=== PATIENT | male | born 1960 | race Caucasian/White ===

== ENCOUNTER 2019-08-16 08:06 | Outpatient (RCR) | payer OTHER ==
[~2019-08-16] VITALS: Ht 177.8 cm; Wt 129.5 kg
[~2019-08-16 08:06] MED LIST: AMLO5TAB9 PO; ASPI-586 PO; ATOR20TA66 PO; LEVO25TA5 PO; LOSA100T57 PO; METF-865 PO; OMEP20TA7 PO; TMSL.4C PO
== END 2019-08-16 14:04 | disposition home or self-care (01) ==
LOC: PREOP 08:06
PROVIDERS: ATTEND Urology
DX: Z01.812 Encounter for preprocedural laboratory examination (principal); Z20.828 Contact with and (suspected) exposure to other viral communicable diseases; N40.0 Benign prostatic hyperplasia without lower urinary tract symptoms; R33.9 Retention of urine, unspecified
CPT/HCPCS: 87635

== ENCOUNTER 2019-08-21 06:05 | Day surgery (SDC) | payer OTHER ==
[~2019-08-21] VITALS: Ht 177.8 cm; Wt 129.5 kg
[2019-08-21] VITALS (11 sets, daily range): BP systolic 131–160; BP diastolic 66–90
--- OUTSIDE RECORDS SUMMARY | 2019-08-21 06:10 | XMS REPORT | Clinical Summary ---
Author Author Admin, Eleazar Casiano Organization [facility] Address Unknown Phone Unavailable Allergies, Adverse Reactions, Alerts Allergy Name Reaction Description Start Date Severity Status Pr ovider NKA Critical Active Jesus Manuel agudelo MD Conditions or Problems Problem Name Problem Code Onset Date Status Entry Date Provider Comment Standard Description Annotate Umbilical hernia without obstruction or gangrene 6 Active Jesus Manuel Valencia MD Umbilical hernia without men tion of obstruction or gangrene Ventral hernia 553.20 Active Jesus Manuel Valencia MD Unspecified ventral hernia without mention of obstruction or gangrene Medication List Medication Instructions Start Date Stop Date Generic Name NDC Status Provider Patient Instruction COZAAR 50 MG ORAL TABS 1 tab daily LOSARTAN POTAS SIUM 03587444725 Active Destinee Blanc RN Active OMEPRAZOLE 20 MG ORAL CPDR 1 tab daily OMEPRAZOLE 09183080938 Active Destinee Blanc RN Active Advance Directives Directive Description Start Date PERMISSION TO SHARE Vital Signs Date Name Value Unit Range Description blood pressure, diastolic 90 mm[Hg] BP arciniega blood pressure, systolic 150 mm[Hg] BP sys height E&M 69 [in_us] Bdy height pulse rate E&M 74 /min Heart rate temperature E&M 98.8 [degF] Body temp erature weight E&M 305 [lb_av] Weight Measure d Encounters Code Encounter Date Provider Facility CPT-12011 Level 4 New Patient 13:26:59 CDT Jesus Manuel Valencia MD [facility]
--- OUTSIDE RECORDS SUMMARY | 2019-08-21 06:10 | XMS REPORT ---
Author Author Eleazar Tenorio Organization [facility] Address [address] [place], [place] [id number] Care Team Providers Care Direct Support Professional Name Role Phone Isaiah Tenorio PCP Isaiah Tenorio PreferredProvider Allergies and Adverse Reactions Name Reaction Notes No known drug allergy Plan of Treatment Planned Activity Comments Planned Date Planned Time Plan/Goal URINALYSIS ROUTINE C&S IF IND 06/13/2018 12:00 AM Medications Active Name Start Date Estimated Completion Date SIG Co mments losartan 100 mg oral tablet take 1 tablet (100 mg) by oral route once daily omeprazole 20 mg oral capsule,delayed release(DR/EC) take 1 capsule (20 mg) by oral route once daily before a meal atorvastatin 20 mg oral tablet t christi 1 tablet (20 mg) by oral route once daily levothyroxine 25 mcg oral tablet take 1 tablet (25 mcg) by oral route once daily metformin 500 mg oral tablet quang e 1 tablet (500 mg) by oral route 2 times per day with morning and evening meals Problem List Description Status Onset Acute cystitis without hematuria Active 9 Vital Signs Date Time BP-Sys(mm[Hg] BP-Diana(mm[Hg]) HR(bpm) RR(rpm) Temp WT HT HC BMI BSA BMI Percentile O2 Sat(%) 06/13/2018 8:34:00 AM 134 mmHg 78 mmHg 76 bpm 98 F 292 lbs 69 in 43.1204 kg/m 2.5393 m 93 % Social History Name Description Comments Tobacco Never smoker History of Procedures Not available. Results Summary Not available. History Of Immunizations Not available. History of Past Illness Name Date of Onset Comments Type 2 diabetes mellitus Hypothyroid High cholesterol HTN (hypertension) Acute cystitis without hematuria 06/13/2018 Dysuria Jun 13 2018 8:54AM Payers Insurance Name Company Name Plan Name Plan Number Policy Number Juan C cy Group Number Start Date [facility] [address] [facility] [id number] 2 N/A History of Encounters Visit Date Visit Type Provider 06/13/2018 Office visit Isaiah FOLEY
--- OUTSIDE RECORDS SUMMARY | 2019-08-21 06:10 | XMS REPORT | Clinical Summary ---
Author Author Admin, Eleazar Casiano Organization [facility] Address Unknown Phone Unavailable Allergies, Adverse Reactions, [...] TABS 1 tab daily LOSARTAN POTAS SIUM 80795337338 Active Destinee Blanc RN Active OMEPRAZOLE 20 MG ORAL CPDR 1 tab daily OMEPRAZOLE 19247185857 Active Destinee Blanc RN Active Vital Signs Date Name Value Unit Range Description blood pressure, diastolic 90 mm[Hg] BP arciniega blood pressure, systolic 150 mm[Hg] BP sys height E&M 69 [in_us] Bdy height pulse rate E&M 74 /min Heart rate temperature E&M 98.8 [degF] Body temp erature weight E&M 305 [lb_av] Weight Measure d Encounters Code Encounter Date Provider Facility CPT-07503 Level 4 New Patient 13:26:59 CDT Jesus Manuel Valencia MD [facility]
--- OUTSIDE RECORDS SUMMARY | 2019-08-21 06:10 | XMS REPORT | Clinical Summary ---
Demographics Home Phone Preferred Language Unknown Marital Status Unknown Roman Catholic Affiliation Unknown Race Unknown Ethnic Group Unknown Author Author Admin, Eleazar ABRAMS Organization [facility] Address Unknown Phone Unavailable Allergies, Adverse Reactions, Alerts Allergy Name Reaction Description Start Date Severity Status Pr ovider Allergies Unknown Conditions or Problems Problem Name Problem Code Onset Date Status Entry Date Provider Comment Standard Description Annotate Problems Unknown Active Medication List Medication Instructions Start Date Stop Date Generic Name NDC Status Provider Patient Instruction COZAAR 50 MG ORAL TABS 1 tab daily LOSARTAN POTAS SIUM 68818207770 Active Destinee Blanc RN Active OMEPRAZOLE 20 MG ORAL CPDR 1 tab daily OMEPRAZOLE 51139386432 Active Destinee Blanc RN Active
--- OUTSIDE RECORDS SUMMARY | 2019-08-21 06:10 | XMS REPORT ---
Author Author Eleazar Tenorio Organization [facility] Address [address] [place], [place] [phone] Care Team Providers Care Direct Service Provider Name Role Phone Isaiah Tenorio PCP Isaiah Tenorio PreferredProvider Allergies and Adverse Reactions Name Reaction Notes No known drug allergy Plan of Treatment Planned Activity Comments Planned Date Planned Time Plan/Goal Right middle finger pain and swelling 07/26/2018 1:0 0 PM HGB A1C 10/23/2018 12:00 AM TSH 10/23/2018 12:00 AM Medications Active Name Start Date Estimated Completion Date SIG Co mments losartan 100 mg oral tablet take 1 tablet (100 mg) by oral route once daily atorvastatin 20 mg oral tablet t christi 1 tablet (20 mg) by oral route once daily metformin 500 mg oral tablet quang e 1 tablet (500 mg) by oral route 2 times per day with morning and evening meals levothyroxine 25 mcg oral tablet 08/30/2018 TAKE 1 TABLET BY MOUTH IN THE MORNING ON AN EMPTY STOMACH omeprazole 20 mg oral capsule,delayed release(DR/EC) 09/27/2018 TAKE 1 CAPSULE BY MOUTH ONCE DAILY Name Start Date Expiration Date SIG Comments Bactrim DS 800-160 mg oral tablet 06/13/2018 06/23/2018 take 1 tablet by oral route every 12 hours for 10 days Discontinued Name Start Date Discontinued Date SIG Comments losartan 50 mg oral tablet 09/27/2018 10/23/2018 TAKE 1 TABLET BY MOUTH ONCE DAILY Problem List Description Status Onset Acute cystitis without hematuria Active 9 Diabetes mellitus due to underlying cond ition without complication, without long-term current use of insulin Active 06/13/2018 Other specified hypothyroidism Active 06/13/2018 Pure hypercholesterolemia Active 06/13/2018 Essential hypertension Active 06/13/2018 Vital Signs Date Time BP-Sys(mm[Hg] BP-Diana(mm[Hg]) HR(bpm) RR(rpm) Temp WT HT HC BMI BSA BMI Percentile O2 Sat(%) 10/23/2018 8:05:00 AM 138 mmHg 74 mmHg 62 bpm 98.8 F 288.75 lbs 96 % 07/06/2018 8:09:00 AM 148 mmHg 88 mmHg 63 bpm 98.8 F 292 lbs 69 in 43.12 kg/m2 2.54 m2 94 % 06/13/2018 8:34:00 AM 134 mmHg 78 mmHg 76 bpm 98 F 292 lbs 69 in 43.1204 kg/m 2.5393 m 93 % Social History Name Description Comments Tobacco Never smoker History of Procedures Date Ordered Description Order Status 06/13/2018 12:00 AM URNLS DIP STICK/TABLET RGNT AUTO W/O AMMY ROSCOPY Returned 06/13/2018 12:00 AM URINALYSIS AUTO W/O SCOPE Reviewed 06/13/2018 9:10 AM URINALYSIS AUTO W/O SCOPE Reviewed 10/23/2018 12:00 AM ROUTINE VENIPUNCTURE Reviewed Results Summary Date and Description Results 06/13/2018 9:10 AM Clarity Ur clear Urine-Color yellow Glucose Ur-sCnc neg Bilirub Ur Ql neg Ketones Ur Ql Strip neg Sp Gr Ur Qn 1.010 Hgb Ur Ql Strip moderate pH Ur-LsCnc 5.0 Prot Ur Ql Strip 30mg Urobilinogen Ur-mCnc 0.2 Nitrite Ur Ql Strip pos WBC # Ur mod History Of Immunizations Not available. History of Past Illness Name Date of Onset Comments Type 2 diabetes mellitus Hypothyroid High cholesterol HTN (hypertension) Acute cystitis without hematuria 06/13/2018 Diabetes mellitus due to underlying cond ition without complication, without long-term current use of insulin 06/13/2018 Other specified hypothyroidism 06/13/2018 Pure hypercholesterolemia 06/13/2018 Essential hypertension 06/13/2018 Dysuria Jun 13 2018 8:54AM Acute cystitis without hematuria Jun 13 2018 8:37AM Diabetes mellitus due to underlying cond ition without complication, without long-term current use of insulin Jun 13 2018 8:37AM Essential hypertension Jun 13 2018 8:37AM Pure hypercholesterolemia Jun 13 2018 8:37AM Other specified hypothyroidism Jun 13 2018 8:37AM Dysuria Jun 13 2018 9:03AM Finger pain, right Jul 06 2018 8:12AM Diabetes mellitus due to underlying cond ition without complication, without long-term current use of insulin Jul 06 2018 8:12AM Essential hypertension Jul 06 2018 8:12AM Other specified hypothyroidism Jul 06 2018 8:12AM Pure hypercholesterolemia Jul 06 2018 8:12AM Diabetes mellitus due to underlying cond ition without complication, without long-term current use of insulin Oct 23 2018 8:07AM Essential hypertension Oct 23 2018 8:07AM Other specified hypothyroidism Oct 23 2018 8:07AM Pure hypercholesterolemia Oct 23 2018 8:07AM Payers Insurance Name Company Name Plan Name Plan Number Policy Number Juan C cy Group Number Start Date [facility] [id number] [facility] [id number] N/A History of Encounters Visit Date Visit Type Provider 10/23/2018 Office visit Isaiah Doe 07/06/2018 Office visit Isaiah Doe 06/13/2018 Office visit Isaiah Doe
--- OUTSIDE RECORDS SUMMARY | 2019-08-21 06:10 | XMS REPORT | Clinical Summary ---
Author Author Admin, Eleazar Casiano Organization [facility] Address Unknown Phone Unavailable Allergies, Adverse Reactions, Alerts Allergy Name Reaction Description Start Date Severity Status Pr ovider NKA Critical Active Jesus Manuel agudelo MD Conditions or Problems Problem Name Problem Code Onset Date Status Entry Date Provider Comment Standard Description Annotate Umbilical hernia without obstruction or gangrene 12/06 Resolved Jesus Manuel Vlaencia MD Umbilical hernia without mention of obstruction or gangrene Ventral hernia 553.20 Resolved Jesus Manuel duke MD Unspecified ventral hernia without mention of obstruction or gangrene Umbilical hernia without obstruction or gangrene 12/06 Inactive Jesus Manuel Valencia MD Ventral hernia ICD-553.20 Inactive Jesus Manuel Neff MD Medication List Medication Instructions Start Date Stop Date Generic Name NDC Status Provider Patient Instruction COZAAR 50 MG ORAL TABS 1 tab daily LOSARTAN POTAS SIUM 46292107750 Active Destinee Blanc RN Active OMEPRAZOLE 20 MG ORAL CPDR 1 tab daily OMEPRAZOLE 35555582544 Active Destinee Blanc RN Active Advance Directives Directive Description Start Date PERMISSION TO SHARE Vital Signs Date Name Value Unit Range Description blood pressure, diastolic 80 mm[Hg] BP arciniega blood pressure, systolic 160 mm[Hg] BP sys height E&M 69 [in_us] Bdy height pulse rate E&M 70 /min Heart rate temperature E&M 99.1 [degF] Body temp erature weight E&M 312.4 [lb_av] Weight Measure d blood pressure, diastolic 90 mm[Hg] BP arcinieag blood pressure, systolic 150 mm[Hg] BP sys height E&M 69 [in_us] Bdy height pulse rate E&M 74 /min Heart rate temperature E&M 98.8 [degF] Body temp erature weight E&M 305 [lb_av] Weight Measure d Encounters Code Encounter Date Provider Facility CPT-39148 Level 4 New Patient 13:26:59 CDT Jesus Manuel Valencia MD [facility] Procedures Code Procedure Name Date Entry Date Standard Desc ription CPT-27847 Postop F/U Visit 14:49:05 CDT
--- OUTSIDE RECORDS SUMMARY | 2019-08-21 06:10 | XMS REPORT | Clinical Summary ---
Author Author Admin, Eleazar Casiano Organization [facility] Address Unknown Phone Unavailable Allergies, Adverse Reactions, [...] TABS 1 tab daily LOSARTAN POTAS SIUM 09518040041 Active Destinee Blanc RN Active OMEPRAZOLE 20 MG ORAL CPDR 1 tab daily OMEPRAZOLE 96575293969 Active Destinee Blanc RN Active Advance Directives [...] d Encounters Code Encounter Date Provider Facility CPT-52981 Level 4 New Patient 13:26:59 CDT Jesus Manuel Valencia MD [facility]
--- OUTSIDE RECORDS SUMMARY | 2019-08-21 06:10 | XMS REPORT | Clinical Summary ---
Author Author Admin, Eleazar Casiano Organization [facility] Address Unknown Phone Unavailable Allergies, Adverse Reactions, [...] TABS 1 tab daily LOSARTAN POTAS SIUM 38777183113 Active Destinee Blanc RN Active OMEPRAZOLE 20 MG ORAL CPDR 1 tab daily OMEPRAZOLE 11378198418 Active Destinee Blanc RN Active Advance Directives [...] d Encounters Code Encounter Date Provider Facility CPT-37707 Level 4 New Patient 13:26:59 CDT Jesus Manuel Valencia MD [facility]
--- OUTSIDE RECORDS SUMMARY | 2019-08-21 06:10 | XMS REPORT | Clinical Summary ---
Author Author Admin, Eleazar Casiano Organization [facility] Address Unknown Phone Unavailable Allergies, Adverse Reactions, Alerts Allergy Name Reaction Description Start Date Severity Status Pr ovider NKA Critical Active Jesus Manuel agudelo MD Conditions or Problems Problem Name Problem Code Onset Date Status Entry Date Provider Comment Standard Description Annotate Umbilical hernia without obstruction or gangrene 12/06 Resolved Jesus Manuel Valencia MD Umbilical hernia without mention of obstruction or gangrene Ventral hernia 553.20 Resolved Jesus Manuel duke MD Unspecified ventral hernia without mention of obstruction or gangrene Ventral hernia ICD-553.20 Inactive Jesus Manuel Neff MD Umbilical hernia without obstruction or gangrene 12/06 Inactive Jesus Manuel Valencia MD Medication List Medication Instructions Start Date Stop Date Generic Name NDC Status Provider Patient Instruction COZAAR 50 MG ORAL TABLET 1 tab daily LOSARTAN P OTASSIUM 28681502746 Active Destinee Blanc RN Active OMEPRAZOLE 20 MG ORAL CAPSULE DELAYED RELEASE 1 tab daily OMEPRAZOLE 51529470474 Active Destinee Blanc RN Active Advance Directives [...] d blood pressure, diastolic 90 mm[Hg] BP arciniega blood pressure, systolic 150 mm[Hg] BP sys height E&M 69 [in_us] Bdy height pulse rate E&M 74 /min Heart rate temperature E&M 98.8 [degF] Body temp erature weight E&M 305 [lb_av] Weight Measure d Encounters Code Encounter Date Provider Facility CPT-32702 Level 4 New Patient 13:26:59 CDT Jesus Manuel Valencia MD [facility] Procedures Code Procedure Name Date Entry Date Standard Desc ription CPT-61974 Postop F/U Visit 14:49:05 CDT
--- OUTSIDE RECORDS SUMMARY | 2019-08-21 06:10 | XMS REPORT | Clinical Summary ---
Author Author Admin, Eleazar Casiano Organization [facility] Address Unknown Phone Unavailable Allergies, Adverse [...] TABS 1 tab daily LOSARTAN POTAS SIUM 82458710978 Active Destinee Blanc RN Active OMEPRAZOLE 20 MG ORAL CPDR 1 tab daily OMEPRAZOLE 02155293139 Active Destinee Blanc RN Active Advance Directives [...] d Encounters Code Encounter Date Provider Facility CPT-08886 Level 4 New Patient 13:26:59 CDT Jesus Manuel Valencia MD [facility]
--- OUTSIDE RECORDS SUMMARY | 2019-08-21 06:10 | XMS REPORT | Clinical Summary ---
Author Author Admin, Eleazar ABRAMS Organization [facility] Address Unknown Phone Unavailable Allergies, Adverse Reactions, [...] TABS 1 tab daily LOSARTAN POTAS SIUM 31069515515 Active Destinee Blanc RN Active OMEPRAZOLE 20 MG ORAL CPDR 1 tab daily OMEPRAZOLE 24444187000 Active Destinee Blanc RN Active
--- OUTSIDE RECORDS SUMMARY | 2019-08-21 06:10 | XMS REPORT | Clinical Summary ---
Author Author Admin, Eleazar Casiano Organization [facility] Address Unknown Phone Unavailable Allergies, Adverse Reactions, [...] TABS 1 tab daily LOSARTAN POTAS SIUM 09581731767 Active Destinee Blanc RN Active OMEPRAZOLE 20 MG ORAL CPDR 1 tab daily OMEPRAZOLE 02761081623 Active Destinee Blanc RN Active Advance Directives [...] d Encounters Code Encounter Date Provider Facility CPT-47637 Level 4 New Patient 13:26:59 CDT Jesus Manuel Valencia MD [facility] Procedures Code Procedure Name Date Entry Date Standard Desc ription CPT-72139 Postop F/U Visit 14:49:05 CDT
--- OUTSIDE RECORDS SUMMARY | 2019-08-21 06:10 | XMS REPORT ---
Author Author Eleazar Tenorio Organization [facility] Address [address] [place], [place] [id number] Care Team Providers Care Finishing Range Feeder Name Role Phone Isaiah Tenorio PCP Isaiah Tenorio PreferredProvider Allergies and Adverse Reactions Name Reaction Notes No known drug allergy Plan of Treatment Planned Activity Comments Planned Date Planned Time Plan/Goal URINALYSIS ROUTINE C&S IF IND 06/13/2018 12:00 AM Urine dipstick test without microscopy 06/13/2018 12 :00 AM Medications Active Name Start Date Estimated [...] per day with morning and evening meals Bactrim DS 800-160 mg oral tablet 06/13/2018 06/23/2018 take 1 tablet by oral route every 12 hours for 10 days Problem List Description Status Onset Acute cystitis [...] 2018 8:37AM Dysuria Jun 13 2018 9:03AM Payers Insurance Name Company Name Plan Name Plan Number Policy Number Juan C cy Group Number Start Date [facility] [address] [facility] [id number] 2 N/A History of Encounters Visit Date Visit Type Provider 06/13/2018 Office visit Isaiah FOLEY
--- OUTSIDE RECORDS SUMMARY | 2019-08-21 06:10 | XMS REPORT ---
Author Author Eleazar Tenorio Organization [facility] Address [address] [place], [place] [address] Care Team Providers Care Cascade Operator Name Role Phone Isaiah Tenorio PCP Isaiah Tenorio PreferredProvider Allergies and Adverse Reactions Name Reaction Notes No known drug allergy Plan of Treatment Planned Activity Comments Planned Date Planned Time Plan/Goal Right middle finger pain and swelling Medications Active Name Start Date Estimated Completion [...] per day with morning and evening meals Name Start Date Expiration Date SIG Comments [...] HC BMI BSA BMI Percentile O2 Sat(%) 07/06/2018 8:09:00 AM 148 mmHg 88 mmHg 63 bpm 98.8 F 292 lbs 69 in 43.1204 kg/m 2.5393 m 94 % 06/13/2018 8:34:00 AM 134 mmHg 78 mmHg 76 bpm 98 F 292 lbs 69 in 43.12 kg/m2 2.54 m2 93 % Social History Name Description Comments Tobacco Never smoker History of Procedures Date Ordered Description Order Status 06/13/2018 12:00 AM URNLS DIP STICK/TABLET RGNT AUTO W/O AMMY ROSCOPY Returned 06/13/2018 12:00 AM URINALYSIS AUTO W/O SCOPE Reviewed 06/13/2018 9:10 AM URINALYSIS AUTO W/O SCOPE Reviewed Results Summary Date and Description Results [...] 8:12AM Pure hypercholesterolemia Jul 06 2018 8:12AM Payers Insurance Name Company Name Plan Name Plan Number Policy Number Juan C cy Group Number Start Date [facility] [id number] [facility] [id number] N/A History of Encounters Visit Date Visit Type Provider 07/06/2018 Office visit Isaiah FOLEY 06/13/2018 Office visit Isaiah FOLEY
--- OUTSIDE RECORDS SUMMARY | 2019-08-21 06:10 | XMS REPORT ---
Author Author Eleazar Tenorio Organization [facility] Address [address] [place], [place] [phone] Care Team Providers Care Enrollment Counselor Name Role Phone Isaiah Tenorio PCP Isaiah [...] Procedures Date Ordered Description Order Status 06/13/2018 9:10 AM URINALYSIS AUTO W/O SCOPE [...] Juan C cy Group Number Start Date [facility] [address] [facility] [id number] 2 N/A History of Encounters Visit Date Visit Type Provider 06/13/2018 Office visit Isaiah FOLEY
--- OUTSIDE RECORDS SUMMARY | 2019-08-21 06:11 | XMS REPORT | Continuity of Care Document ---
Demographics Preferred Language Unknown Marital Status Unknown Scientologist Affiliation Unknown Race Unknown Ethnic Group Unknown Author Organization Unknown Address Unknown Phone Unavailable Allergies Active Description Code Type Severity Reaction Onset Reported/Identified Relationship to Patient Clinical Status Yes No known allergies Drug N/A N/A Yes NKDA N/A N/ A Yes No Known Drug Allergies [id number] N/A N/A Yes No Known Environmental Allergies [id number] N/A N/A Yes No Known Food Allergies [id number] N/A N/A Yes No Known Drug Allergies [id number] Drug Allergy Unknown N/A 08/14/2019 Medications Medication Packaging Start Date St op Date Route Dosage Sig LISINOPRIL 10/25 ORAL 30 daily LEVAQUIN 017 ORAL 7 daily ALBUTEROL SULFATE 10/25/2016 Inhalation 2 every 6 hours ZITHROMAX 2016 ORAL 6 PREDNISONE 11/01 ORAL 9 Problems Date Dx Coded Attending Type Code Diagnosis Diagnosed By 10/13/2017 CHRIS HIDALGO J40 Bronchitis, not specified as acute or chronic 10/17/2017 CHRIS HIDALGO E11.9 Type 2 diabetes mellitus without complications 05/18/2018 Final E03.9 H ypothyroidism, unspecified 05/18/2018 Reason For Visit E11.9 Type 2 diabetes mellitus without complications 05/18/2018 Final E78.00 Pure hypercholesterolemia, unspecified 05/28/2019 S E039 Hypot hyroidism, unspecified 05/28/2019 S E119 Type 2 diabetes mellitus without complications 05/28/2019 S E669 Obesi ty, unspecified 05/28/2019 S E7800 Pure hypercholesterolemia, unspecified 05/28/2019 S I10 Essent ial (primary) hypertension 05/28/2019 S K219 Gastr o-esophageal reflux disease without esophagitis 05/28/2019 P 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, right knee 05/28/2019 S Z6841 Body mass index (BMI) 40.0-44.9, adult 05/28/2019 S 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 05/28/2019 S 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 06/02/2019 S G8918 Othe r acute postprocedural pain 06/02/2019 P M546 Pain in thoracic spine 06/02/2019 S R509 Fever , unspecified 06/02/2019 P M546 Pain in thoracic spine 06/02/2019 S R509 Fever , unspecified 06/11/2019 S G59733 Woodrow n in right knee 06/11/2019 S R262 Diffi culty in walking, not elsewhere classified 06/11/2019 P Z471 After care following joint replacement surgery 06/11/2019 S B78109 Pre sence of right artificial knee joint 06/24/2019 S H37760 Woodrow n in right knee 06/24/2019 S R262 Diffi culty in walking, not elsewhere classified 06/24/2019 P Z471 After care following joint replacement surgery 06/24/2019 S F33258 Pre sence of right artificial knee joint Procedures Code Description [place] [address] COMP REHEN METABOLIC PANEL CHRIS HIDALGO 10/13/2017 92726 GLYC OSYLATED HEMOGLOBIN TEST CHRIS HIDALGO 10/13/2017 00845 COMP LETE CBC W/AUTO DIFF WBC CHRIS HIDALGO 10/13/2017 60893 LIPI D PANEL CHRIS HIDALGO 10/17/2017 Results Test Result Range CMP - 05/18/18 09:15 Glucose Lvl 116 mg/dL 70-99 Sodium Lvl 139 mmol/L 136-145 Potassium Lvl 4.6 mmol/L 3.5-5.1 Chloride 102 mmol/L 98-107 CO2 30 mmol/L 22-29 Calcium Lvl 9.6 mg/dL 8.4-10.2 BUN 16 mg/dL 7-26 Creatinine Lvl 0.8 mg/dL 0.6-1.3 Bili Total 0.7 mg/dL 0.2-1.2 Total Protein 7.5 gm/dL 6.4-8.3 Albumin Lvl 3.7 gm/dL 3.5-5.0 Alk Phos 60 unit/L 40-150 AST 21 unit/L 5-34 ALT 15 unit/L 0-55 Globulin 3.8 gm/dL 2.4-3.5 A/G Ratio 1.0 gm/dL 1.2-2.2 BUN/Creat Ratio 20 ratio 7-25 Osmolality Calc 271 mOsm/kg 261-280 AGAP 7 mmol/L 5-16 eGFR AA 120 "" >=60 eGFR Non-AA 99 "" >=60 TSH - 05/18/18 09:15 TSH 1.27 mcunit/mL 0.35-4.94 Lipid Panel Screen - 05/18/18 09:15 Chol 104 mg/dL 0-199 Trig 71 mg/dL 0-149 HDL 31 mg/dL 40-60 LDL 59 mg/dL 0-130 U Microalb/Creat - 05/18/18 09:15 U Microalb 30.0 mg/L <=10.0 U Creatinine 200 mg/dL U Microalb/Creat <30 mg/g "" <30 mg/g Hgb A1c - 05/18/18 09:15 Hgb A1c 6.3 % <=6.0 .Mean Plasma Glucose(MPG) - 05/18/18 09: 15 Mean Plasma Glucose 134 mg/dL UA ROUTINE C&S IF IND - 06/24/19 10:05 GLUCOSE Normal NL: NEGATIVE mg/dl COLOR Light-Yellow NL: YELLOW CLARITY Clear NL: CLEAR SPEC GRAV 1.007 NL: 1.002 - 1.022 pH 6.0 NL: 5 - 9 PROTEIN Negative NL: NEGATIVE mg/dl KETONE Negative NL: NEGATIVE mg/dl BILIRUBIN Negative NL: NEGATIVE BLOOD Negative NL: NEGATIVE NITRITE Negative NL: NEGATIVE LEUK SCREEN 25 NL: NEGATIVE RBC/HPF 0-3 NL: NONE SEEN WBC/HPF 0-5 NL: NONE SEEN BACTERIA/HPF None Seen NL: NONE SEEN SQUAMOUS EPI/LPF Few NL: NONE SEE N MUCOUS/LPF Few NL: NONE SEEN CULT SET UP? NO NRG UA ROUTINE C&S IF IND N/A NRG Micro Indicated? MICRO IND NRG CBC W/ AUTO DIFF (RFLX MAN DIFF IF IND) - 06/24/19 10:05 CBC W/ AUTO DIFF (RFLX MAN DIFF IF IND) N/A NRG WBC 4.8 TH/CMM 4.5-10.8 RBC 4.44 ML/CMM 4.70-6.10 HGB 12.3 G/DL 14.0-18.0 HCT 37.9 % 42.0-52.0 MCV 85 FL 81-99 MCH 27.7 PG 27.0-33.0 MCHC 32.5 G/DL 31.0-36.0 RDW SD 42 FL 36-50 RDW CV 13.6 % 0.0-14.8 MPV 9.7 FL 9.3-12.5 PLT 261 TH/CMM 130-440 NRBC# 0.00 TH/CMM 0.00-0.00 NRBC% 0.0 /100WBC 0.0-2.0 %NEUT 57.4 % NRG %LYMP 27.7 % NRG %MONO 11.2 % NRG %EOS 3.1 % NRG %BASO 0.4 % NRG #NEUT 2.76 TH/CMM 2.10-8.20 #LYMP 1.33 TH/CMM 0.90-5.20 #MONO 0.54 TH/CMM 0.16-1.00 #EOS 0.15 TH/CMM 0.00-0.80 #BASO 0.02 TH/CMM 0.00-0.20 MANUAL DIFF NOT IND NRG COMPREHENSIVE METABOLIC PANEL - 06/24/19 10:05 COMPREHENSIVE METABOLIC PANEL N/A NRG GLUCOSE 115 MG/DL 70-100 SODIUM 144 MEQ/L 135-148 POTASSIUM 3.3 MEQ/L 3.5-5.3 CHLORIDE 104 MEQ/L 96-110 CO2 31 MEQ/L 22-29 BUN 11 MG/DL 8-22 CREATININE 1.51 MG/DL 0.72-1.25 SGOT/AST 15 IU/L 10-40 SGPT/ALT 12 IU/L 8-54 ALK PHOS 83 IU/L 40-150 TOTAL PROTEIN 6.9 G/DL 5.5-8.5 ALBUMIN 3.5 G/DL 3.1-5.4 TOTAL BILI 0.8 MG/DL 0.0-1.5 CALCIUM 8.3 MG/DL 8.2-10.6 AGE 59 yrs NRG GFR NonAA 47 NRG GFR AA 57 NRG eGFR 47 mL/min/1.7 NRG eGFR AA* 57 mL/min/1.7 NRG NOVEL CORONAVIRUS (COVID-19), JUANITO - 06/12 13:26 SARS-CoV-2, JUANITO Not Detected Not Detect ed SARS-CoV-2, JUANITO - 07/01/19 13:26 SARS-CoV-2, JUANITO Not Detected Not Detect ed Inpatient - 07/01/19 13:26 Inpatient Comment Coronavirus SARS-CoV-2 SO 2019 - 0 13:06 Coronavirus Ab [Units/volume] in Serum Negative Negative Encounters ACCT No. Visit Date/Time Discharge Status Pt. Type Provider Facility Loc./Unit Complaint [id number] 07/01/2019 15:49:00 Document Registration [id number] 06/24/2019 14:09:31 Document Registration [id number] 10/17/2017 10:27:00 10/17/2017 10:27 :00 DIS Outpatient CHRIS HIDALGO [facility] [id number] 10/13/2017 09:18:00 10/13/2017 09:18 :00 DIS Outpatient CHRIS HIDALGO [facility] [id number] 05/18/2018 09:15:00 Document Registration [id number] 07/01/2019 13:26:56 Document Registration [id number] 07/01/2019 11:46:47 Document Registration [id number] 06/24/2019 13:51:18 Document Registration [id number] 06/24/2019 10:29:40 Document Registration [id number] 06/11/2019 11:32:23 Document Registration [id number] 06/11/2019 11:16:29 Document Registration [id number] 06/02/2019 10:05:56 Document Registration [id number] 06/02/2019 09:56:07 Document Registration [id number] 05/28/2019 17:00:03 Document Registration [id number] 05/23/2019 14:18:20 Document Registration [id number] 05/13/2019 07:56:39 Document Registration [id number] 05/04/2019 05:17:20 Document Registration [id number] 04/01/2019 13:05:05 Document Registration [id number] 10/23/2018 13:17:43 Document Registration [id number] 09/25/2018 09:07:25 Document Registration [id number] 12/14/2016 06:19:50 12:30:00 DIS Outpatient ANGELLA BRAXTON [facility] KEERTHI Surgery RAL umbilic al hernia repair [id number] 01/11/2017 10:47:03 ACT Unknown [id number] 01/04/2016 13:57:00 016 23:59:59 CLS Outpatient CHRIS BOWSER [facility] [id number] 05/18/2018 09:15:00 Document Registration [id number] 10/25/2016 15:10:00 Document Registration [id number] 07/03/2019 06:06:00 Document Registration [id number] 08/16/2019 08:06:00 14:04:00 DIS Outpatient ABEL MUELLER MD [facility] PREOP BPH [id number] 08/21/2019 08:00:00 P EN Preadmit ABEL MUELLER MD [facility] BPH [id number] 08/09/2019 09:08:10 08/09/2019 23:59: 59 CLS Outpatient Chris Bowser [id number] 07/25/2019 09:39:38 07/25/2019 23:59: 59 CLS Outpatient Chris Bowser [id number] 07/16/2019 13:56:53 07/16/2019 23:59: 59 CLS Outpatient Prasanna Blandon [id number] 07/11/2019 14:04:28 07/11/2019 23:59: 59 CLS Outpatient Michaelaemeli Prasanna [id number] 07/01/2019 11:31:51 07/01/2019 23:59: 59 CLS Outpatient Chris Bowser [id number] 06/26/2019 12:14:18 06/26/2019 23:59: 59 CLS Outpatient Lise Hernández [id number] 06/24/2019 10:33:31 06/24/2019 23:59: 59 CLS Outpatient Chris Bowser [id number] 06/13/2019 15:57:27 06/13/2019 23:59: 59 CLS Outpatient MichaelaPrasanna sainz [id number] 06/11/2019 11:33:48 06/11/2019 23:59: 59 CLS Outpatient Michaelaemeli Prasanna [id number] 06/05/2019 16:41:27 06/05/2019 23:59: 59 CLS Outpatient Lise Hernández [id number] 05/29/2019 15:26:06 05/29/2019 23:59: 59 CLS Outpatient Chris Bowser [id number] 04/01/2019 09:34:06 04/01/2019 23:59: 59 CLS Outpatient Hoffmeister, Chris [id number] 12/11/2018 17:06:19 12/11/2018 23:59: 59 CIARA Outpatient Chris Bowser [id number] 10/23/2018 09:01:52 10/23/2018 23:59: 59 CIARA Outpatient Chris Bowser [id number] 07/06/2018 09:03:09 07/06/2018 23:59: 59 CAIRA Outpatient Chris Bowser [id number] 06/13/2018 09:13:00 06/13/2018 23:59: 59 CLS Outpatient Chris Bowser
[2019-08-21] MEDS ORDERED: cefTRIAXone 1,000 MG IV (ROCEPHIN) VIAL ONE ×2 (06:14→06:22)
[2019-08-21] MEDS ORDERED: WATER (STERILE) FOR INJECTION 10 ML ONE (06:24)
[2019-08-21 06:45] LABS: BASOPHILS % (AUTO) 0 % (0-10); EOSINOPHILS # (AUTO) 0.3 10^3/uL (0.0-0.3); EOSINOPHILS % (AUTO) 4 % (0-10); HEMATOCRIT 35 % (40-54); HEMOGLOBIN 11.4 G/DL (13.3-17.7); LYMPHOCYTES # (AUTO) 1.7 X 10^3 (1.0-4.0); LYMPHOCYTES % (AUTO) 20 % (12-44); MEAN CORPUSCULAR HEMOGLOBIN 28 PG (25-34); MEAN CORPUSCULAR HGB CONC 32 G/DL (32-36); MEAN CORPUSCULAR VOLUME 85 FL (80-99); MEAN PLATELET VOLUME 9.7 FL (7.4-10.4); MONOCYTES # (AUTO) 0.7 X 10^3 (0.0-1.0); MONOCYTES % (AUTO) 8 % (0-12); NEUTROPHILS # (AUTO) 5.9 X 10^3 (1.8-7.8); NEUTROPHILS % (AUTO) 69 % (42-75); PLATELET COUNT 269 10^3/uL (130-400); RED CELL DISTRIBUTION WIDTH 14.3 % (10.0-14.5); WHITE BLOOD COUNT 8.6 10^3/uL (4.3-11.0)
[2019-08-21] MEDS ORDERED: PROPOFOL INJECTION 50 ML IV ONE (06:59)
[2019-08-21] MEDS ORDERED: fentaNYL INJECTION 100 MCG/2 ML AMP ONE (06:59)
[2019-08-21] MEDS ORDERED: ONDANSETRON 4 MG/2 ML (SDV) Z0FRAN ONE (06:59)
[2019-08-21] MEDS ORDERED: MIDAZOLAM 2 MG/2 ML (VERSED) VIAL ONE (07:00)
--- NOTE | 2019-08-21 07:03 | Progress Note-Pre Operative ---
Pre-Operative Progress Note H&P Reviewed The H&P was reviewed, patient examined and no changes noted. Date Seen by Provider: Aug 21, 2019 Time Seen by Provider: 07:02 Date H&P Reviewed: Aug 21, 2019 Time H&P Reviewed: 07:02 Pre-Operative Diagnosis: BPH, NEUROGENIC BLADDER WITH RETENTION AND INCONTINENCE ABEL MUELLER MD Aug 21, 2019 07:03
[2019-08-21] MEDS ORDERED: LACTATED RINGERS 1,000 ML IV PRN (07:05)
--- NOTE | 2019-08-21 07:06 | Progress Note-Post Operative ---
Post-Operative Progess Note Surgeon (s)/Pile Driver Operator Barge Mounted (s) Surgeon ABEL MUELLER MD Pile Driver Operator Barge Mounted: NONE Pre-Operative Diagnosis BPH, NEUROGENIC BLADDER WITH RETENTION AND INCONTINENCE Post-Operative Diagnosis SAME Procedure & Operative Findings Date of Procedure 08/21/19 Procedure Performed/Findings TURP Anesthesia Type SPINAL Estimated Blood Loss Estimated blood loss (mL): 150cc Specimens/Packing Specimens Removed PROSTATE CHIPS Packing: NONE ABEL MUELLER MD Aug 21, 2019 07:06
[2019-08-21] MEDS ORDERED: LACTATED RINGERS 1,000 ML IV SCH (09:15)
[2019-08-21] MEDS ORDERED: ONDANSETRON 4 MG/2 ML (SDV) Z0FRAN IVP PRN (09:15)
[2019-08-21] MEDS ORDERED: BELLADONNA ALK/OPIUM (B & O) 30 MG SUPP PR PRN (09:15)
[2019-08-21] MEDS ORDERED: morphine INJ 10 MG/ML 1ML (SYR OR VIAL) IVP ONE (09:15)
[2019-08-21] MEDS ORDERED: MEPERIDINE (DEMEROL) INJ 50 MG/ML IVP ONE (09:15)
[2019-08-21] MEDS ORDERED: MILK OF MAGNESIA 400 MG/5 ML 30 ML UDC PO PRN (09:15)
--- NOTE | 2019-08-21 10:10 | NUR ---
RECEIVED FROM RECOVERY POST TURP, REPORT FROM CLARK GOVEA, PATIENT ALERT AND ORIENTED, CBI OF NS CONTINUED, PINK TINGED URINE, IV SITE WITHOUT REDNESS OR SWELLING, DENIES PAIN AT THIS TIME, O2 SAT 98 PERCENT, SCD'S ON, ORIENTED TO ROOM, CALL LIGHT WITHIN REACH.
[2019-08-21] MEDS ORDERED: HYDROcodone/APAP 10 MG/325 MG (LORTAB) TAB PO ONE (12:14)
[2019-08-21] MEDS: HYDROcodone/APAP 10 MG/325 MG (LORTAB) TAB PO PRN ×3 (12:18→22:50)
[2019-08-21] MEDS: LOSARTAN 100 MG (COZAAR) TABLET PO SCH (12:41)
[2019-08-21] MEDS: LACTATED RINGERS 1,000 ML IV SCH ×3 (12:41→22:51)
[2019-08-21] MEDS: PANTOPRAZOLE 40 MG (PROTONIX) TAB PO SCH (12:41)
--- NOTE | 2019-08-21 14:00 | OPERATIVE REPORT ---
DATE OF SERVICE: 08/21/2019 PREOPERATIVE DIAGNOSIS: Benign prostatic hypertrophy with neurogenic bladder and retention with incontinence. POSTOPERATIVE DIAGNOSIS: Benign prostatic hypertrophy with neurogenic bladder and retention with incontinence. OPERATION PERFORMED: Transurethral resection of the prostate. SURGEON: Abel Mueller MD. ANESTHESIA: Spinal. COMPLICATIONS: None. DESCRIPTION OF PROCEDURE: Under satisfactory spinal anesthesia, the patient in lithotomy position, genitalia were prepped and draped in the usual sterile fashion. Urethra was dilated with Nataly sound to #30 Ukrainian easily. A 26-Ukrainian resectoscope was then introduced, the Leon type. Again, visualized the quite enlarged vascular prostate with the lateral lobe meeting in the midline and the median projection with medial lobe and bar. I went ahead and first resected the median projection and leveled it and then the lateral lobes first I went between 11 o'clock and 1 o'clock, and then gradually down on both sides to the 6 o'clock position and then the floor and apical tissue were resected. Resection was adequate. Hemostasis satisfactory. Prostatic capsule was visualized in many points. Bleeders were cauterized as the resection was proceeding. The prostatic chips were evacuated and sent for pathology. Cystoscopy confirmed intact orifices. Veru and sphincter with good reflex. Resectoscope was then removed and a 22-Ukrainian 3-way 30 mL balloon catheter was inserted. The balloon inflated to 50 mL, connected to continuous bladder irrigation with normal saline on traction. The return of which was pretty clear with traction. ESTIMATED BLOOD LOSS: 150 mL, none of which was replaced. The patient tolerated the procedure and anesthesia well and was sent to recovery room in stable condition. Job ID: [id number] DocumentID: [id number] Dictated Date: 08/21/2019 09:14:52 Plant Physiologist Date: 08/21/2019 13:59:59 Dictated By: ABEL MUELLER MD
[2019-08-21] MEDS: metFORMIN XR 500 MG (GLUCOPHAGE XR) TAB PO SCH (17:03)
[2019-08-21] MEDS: cefTRIAXone FOR IV USE 1,000 MG in WATER (STERILE) FOR INJECTION 10 ML IV ONE ×2 (19:46→19:47)
[2019-08-21] MEDS: DOCUSATE SODIUM 100 MG (COLACE) CAP PO SCH (20:04)
[2019-08-22 00:44] VITALS: BP 134/74
[2019-08-22 04:15] VITALS: BP 126/77
[2019-08-22] MEDS: metFORMIN XR 500 MG (GLUCOPHAGE XR) TAB PO SCH ×2 (06:17→17:48)
[2019-08-22] MEDS: LEVOTHYROXINE 25 MCG (LEVOTHROID) TAB PO SCH (06:17)
--- NOTE | 2019-08-22 07:04 | Anesthesia-Regional Post-Op ---
Regional Patient Condition Mental Status: Alert, Oriented x3 Circulation: Same as Pre-Op Headache: Absent Sensation: Full Recovery Motor Block: Absent Post Op Complications Complications None Follow Up Care/Instructions Patient Instructions None needed. Anesthesia/Patient Condition Patient is doing well, no complaints, stable vital signs, no apparent adverse anesthesia problems. No complications reported per nursing. PAMELA MORRIS CRNA Aug 22, 2019 07:04
[2019-08-22 07:23] VITALS: BP 149/72
[2019-08-22] MEDS: LOSARTAN 100 MG (COZAAR) TABLET PO SCH (08:28)
[2019-08-22] MEDS: PANTOPRAZOLE 40 MG (PROTONIX) TAB PO SCH (08:28)
[2019-08-22] MEDS: DOCUSATE SODIUM 100 MG (COLACE) CAP PO SCH ×2 (08:28→20:22)
[2019-08-22] MEDS ORDERED: LEVOFLOXACIN 500 MG/100 ML IV 100 ML IV ONE (09:15)
[2019-08-22] MEDS: HYDROcodone/APAP 10 MG/325 MG (LORTAB) TAB PO PRN (09:59)
--- NOTE | 2019-08-22 10:00 | Progress Note - Urology ---
Progress Note-Urology Progress Notes/Assess & Plan Progress/Assessment & Plan DOING, LOOKING, AND FEELING VERY WELL. URINE CLEAR. PLAN PER ORDERS Final Diagnosis BPH, NEUROGENIC BLADDER WITH RETENTION AND INCONTINENCE POST TURP ABEL MUELLER MD Aug 22, 2019 10:00
[2019-08-22 12:13] VITALS: BP 117/69
--- NOTE | 2019-08-22 14:03 | NUR ---
Still not able to void post Lombardi removal. patient stated he does not feel the urge. patient was bladder scanned and only 91CC present in bladder at this time. Dr Wilson, notified awaiting reply
--- NOTE | 2019-08-22 14:54 | NUR ---
attempted to call jessica again regarding patients inability to void. phone still going straight to voice mail. still no reply to previous Text message. patient still not in any pain at this time but encouraged to drink fluid and ambulate
--- NOTE | 2019-08-22 15:31 | NUR ---
patient able to void 50CC at this time red urine. bladder scanned again showed 135CC currently in bladder. called jessica office at this time. staff stated he is not at the office
[2019-08-22 16:24] VITALS: BP 124/64
[2019-08-22 19:40] VITALS: BP 132/68
[2019-08-23] VITALS: BP 117/71
[2019-08-23] MEDS: metFORMIN XR 500 MG (GLUCOPHAGE XR) TAB PO SCH (06:45)
[2019-08-23] MEDS: LEVOTHYROXINE 25 MCG (LEVOTHROID) TAB PO SCH (06:45)
[2019-08-23 08:00] VITALS: BP 146/66
[2019-08-23] MEDS: PANTOPRAZOLE 40 MG (PROTONIX) TAB PO SCH (09:13)
[2019-08-23] MEDS: LOSARTAN 100 MG (COZAAR) TABLET PO SCH (09:13)
[2019-08-23] MEDS: DOCUSATE SODIUM 100 MG (COLACE) CAP PO SCH (09:13)
--- NOTE | 2019-08-23 09:42 | Progress Note - Urology ---
Progress Note-Urology Progress Notes/Assess & Plan Progress/Assessment & Plan DOING WELL, VOIDING WELL, EMPTIES, CONTINENT, URINE TINGED, NO COMPLAINTS. HOME WITH INSTRUCTIONS. Final Diagnosis BPH, NEUROGENIC BLADDER WITH RETENTION AND INCONTINENCE ABEL MUELLER MD Aug 23, 2019 09:42
--- NOTE | 2019-08-23 09:46 | Discharge Inst-Urology ---
Discharge Inst-Urology Reconcile Patient Problems Problems Reviewed?: Yes Final Diagnosis BPH, NEUROGENIC BLADDER WITH RETENTION AND INCONTINENCE Patient Instructions/Follow Up Plan/Assessment/Instructions Please make appointment to been seen in office in 2 weeks. Rest till then Keep bowels soft and moving Showers, no bath Stay off ASA, Flomax, and Proscar Please call pharmacy for Bactrim DS bid for a week, Pyridium 200 TID PRN #15 Increase oral fluids for 48 hours and then as needed. Diet and Activity as tolerated. If questions or concerns contact your physician Or seek help at emergency department. ABEL MUELLER MD Aug 23, 2019 09:46
== END 2019-08-23 11:32 | disposition home or self-care (01) ==
LOC: SDC 06:05 → 4TH 10:10 → SDC 08-23 11:32
PROVIDERS: ATTEND Urology
DX: N40.1 Benign prostatic hyperplasia with lower urinary tract symptoms (principal); N31.9 Neuromuscular dysfunction of bladder, unspecified; R32 Unspecified urinary incontinence; Z11.2 Encounter for screening for other bacterial diseases; N32.81 Overactive bladder
CPT/HCPCS: 36415; 82962; 85025; 86850; 86900; 86901; 87081; 94664